=== PATIENT | male | born 1960 ===

== ENCOUNTER 2017-06-24 16:13 | Emergency (ER) | payer MEDICAID ==
[2017-06-24 16:31] VITALS: BP 149/92; PULSE 88; RESP 18; TEMP 98.7; O2SAT 98
== END 2017-06-24 19:54 | disposition left against medical advice (07) ==
LOC: C.ER 16:13
DX: Z02.89 Encounter for other administrative examinations (principal); M79.652 Pain in left thigh

== ENCOUNTER 2017-10-25 10:24 | Emergency (ER) | payer MEDICAID ==
[2017-10-25 10:37] VITALS: O2SAT 98
--- NOTE | 2017-10-25 11:21 | C.PDOC ---
History Of Present Illness 57 y/o male brought to ED by sister in law for evaluation of patient worsening confuseion for 2 days. As per sister in law patient showed up at her house this morning stating he was confused. Sister in law took patient to PMD who referred to Psychiatrist but states appointment is in February and patient's status is worsening prompting Visit to ED. HPI limited secondary to patient's condition. Time Seen by Provider: 10/25/17 10:56 Chief Complaint (Nursing): Altered Mental Status History Per: Family History/Exam Limitations: Clinical Condition Onset/Duration Of Symptoms: Days Current Symptoms Are (Timing): Still Present Usual Baseline: Alert Confused Past Medical History Reviewed: Historical Data, Nursing Documentation, Vital Signs Vital Signs: Last Vital Signs Temp 98.2 F 10/25/17 10:32 Pulse 82 10/25/17 10:32 Resp 14 10/25/17 10:32 BP 172/94 H 10/25/17 10:32 Pulse Ox 98 10/25/17 15:04 - Medical History PMH: No Chronic Diseases Surgical History: No Surg Hx Family History: States: No Known Family Hx - Social History Hx Alcohol Use: Yes Hx Substance Use: No - Immunization History Hx Tetanus Toxoid Vaccination: No Hx Influenza Vaccination: No Hx Pneumococcal Vaccination: No Review Of Systems Review Of Systems: ROS cannot be obtained secondary to pt's inabilty to answer questions. Physical Exam - Physical Exam Additional Physical Exam Comments: Constitutional: Non toxic, Confused Head: Normocephalic. Atraumatic. Eyes: PERRL. ENT: Moist mucous membranes. Neck: Supple. Cardiovascular: Regular rate. Radial pulse 2+ bilaterally. Chest: No tenderness. Respiratory: Clear to auscultation bilaterally. GI: Soft. Nontender. Nondistended. Back: No CVA tenderness. Musculoskeletal: No tenderness or swelling of extremities. Skin: No rash. Neurologic: AAOX1, Inappropriate response to questions ED Course And Treatment - Laboratory Results Result Diagrams: 10/25/17 11:24 10/25/17 11:24 O2 Sat by Pulse Oximetry: 98 (RA) Pulse Ox Interpretation: Normal Medical Decision Making Medical Decision Making: Patient medically clear, evaluated by Psych but cleared for discharge, not candidate for involuntary admission. Disposition - Disposition Disposition: HOME/ ROUTINE Disposition Time: 12:23 Condition: STABLE Instructions: Dementia (DC) Forms: [employer] ([place]) - Clinical Impression Clinical Impression: Dementia - Scribe Statement The provider has reviewed the documentation as recorded by the Scribhannah Bridges All medical record entries made by the Sheilaibhannah were at my direction and personally dictated by me. I have reviewed the chart and agree that the record accurately reflects my personal performance of the history, physical exam, medical decision making, and the department course for this patient. I have also personally directed, reviewed, and agree with the discharge instructions and disposition.
[2017-10-25 11:28] LABS: BASO # 0.1 K/uL (0.0-0.2); BASO % 1.2 % (0.0-2.0); EOS # 0.1 K/uL (0.0-0.7); EOS % 1.4 % (0.0-4.0); HEMOGLOBIN 14.3 g/dL (12.0-18.0); LYMPH # 1.8 K/uL (1.0-4.3); LYMPH % 33.2 % (20.0-40.0); MEAN CELL VOLUME 90.9 fL (80.0-94.0); MEAN CORPUSCULAR HGB CONC 34.1 g/dL (33.0-37.0); MEAN PLATELET VOLUME 8.1 fL (7.2-11.7); MONO # 0.4 K/uL (0.0-0.8); MONO % 6.6 % (0.0-10.0); NEUT # 3.1 K/uL (1.8-7.0); NEUT % 57.6 % (50.0-75.0); NRBC % 0.1 % (0.0-2.0); RBC 4.62 Mil/uL (4.40-5.90); RED CELL DISTRIBUTION WIDTH 14.2 % (11.5-14.5); WHITE BLOOD COUNT 5.3 K/uL (4.8-10.8)
[2017-10-25 11:40] LABS: ALB/GLOB RATIO 1.2 (1.0-2.1); ALBUMIN 4.4 g/dL (3.5-5.0); ALT/SGPT 28 U/L (21-72); AST/SGOT 33 U/L (17-59); BLOOD UREA NITROGEN 17 mg/dL (9-20); CALCIUM 9.1 mg/dl (8.6-10.4); GFR AFRICAN-AMERICAN > 60; GFR NON-AFRICAN AMERICAN > 60
[2017-10-25 11:46] LABS: URINE BILIRUBIN NEGATIVE (NEGATIVE); URINE BLOOD NEGATIVE (NEGATIVE); URINE CLARITY Hazy (Clear); URINE COLOR Yellow (YELLOW); URINE GLUCOSE (UA) NORMAL (Normal); URINE LEUKOCYTE ESTERASE NEG Leu/uL (Negative); URINE PROTEIN NEGATIVE (NEGATIVE); URINE UROBILINOGEN NORMAL mg/dL (0.2-1.0)
[2017-10-25 12:22] LABS: BARBITURATES, UR NEGATIVE (NEGATIVE); BENZODIAZEPINES, UR NEGATIVE (NEGATIVE); OPIATES, UR NEGATIVE (NEGATIVE); PHENCYCLIDINE, UR NEGATIVE (NEGATIVE)
--- NOTE | 2017-10-25 14:27 | CT ---
PROCEDURE: CT HEAD WITHOUT CONTRAST. HISTORY: confusion COMPARISON: None available. TECHNIQUE: Axial computed tomography images were obtained through the head/brain without intravenous contrast. Radiation dose: Total exam DLP = 852.26 mGy-cm. This CT exam was performed using one or more of the following dose reduction techniques: Automated exposure control, adjustment of the mA and/or kV according to patient size, and/or use of iterative reconstruction technique. FINDINGS: HEMORRHAGE: No intracranial hemorrhage. BRAIN: There is confluent low attenuation in the periventricular white matter and scattered low-attenuation areas in subcortical white matter. There are symmetric basal ganglia calcifications. VENTRICLES: There is mild age-related global parenchymal volume loss and proportionate enlargement of the ventricles and cortical sulci. CALVARIUM: Unremarkable. PARANASAL SINUSES: Predominantly clear. MASTOID AIR CELLS: Predominantly clear. OTHER FINDINGS: None. IMPRESSION: Extensive periventricular white matter changes and scattered subcortical white matter changes are strictly nonspecific. The differential considerations include severe chronic microangiopathic changes, demyelinating disease including multiple sclerosis, leukoencephalopathy, vasculitis, Lyme disease and gliosis amongst others. If clinically indicated, comparison with MRI of the brain without and with intravenous contrast may be performed.
[2017-10-25 15:17] VITALS: BP 136/72; PULSE 78; RESP 18; TEMP 98
== END 2017-10-25 15:16 | disposition home or self-care (01) ==
LOC: C.ER 10:24
DX: F03.90 Unspecified dementia, unspecified severity, without behavioral disturbance, psychotic disturbance, mood disturbance, and anxiety (principal)